=== PATIENT | female | born 1995 | race Caucasian/White ===

== ENCOUNTER 2017-11-28 13:50 | Outpatient (CLI) | payer BC ==
--- NOTE | 2017-11-29 14:33 | PFT ---
PATIENT HISTORY: HEIGHT: 67 IN WEIGHT: 195 SMOKER: NEVER HOW LONG: PACKS PER DAY PRODUCTIVE COUGH: LUNG DISEASE: PHYSICIAN INTERPRETATION FINAL REPORT: VITAL CAPACITY EXPIRATORY FLOWS ARE NORMAL. FOLLOWING BRONCHODILATOR THERAPY, THERE IS FURTHER SLIGHT IMPROVEMENT IN EXPIRATORY FLOWS. REVERSIBLE COMPONENT RV DECREASED, RV/TLC IS LOW. IMPRESSION: ESSENTIALLY NORMAL STUDY. [MAYBE REVERSIBLE COMPONENT TO PATIENTS LUNG FUNCTION] [employer] Pilot: KEVIN Talent Buyer: KEVIN PALMER
== END 2017-11-28 13:51 | disposition home or self-care (01) ==
LOC: CP 13:50
PROVIDERS: ATTEND Family Medicine
DX: R06.2 Wheezing (principal); R05 Cough
CPT/HCPCS: 94060; 94727

== ENCOUNTER 2019-02-21 12:51 | Emergency (ER) | payer OTHER ==
[2019-02-21] MEDS ORDERED: Lidocaine 1% w/Epinephrine 1:100K 20 ML VIAL ONE (13:39)
[2019-02-21] MEDS ORDERED: Bacitracin Zinc 1 Packet ONE (14:41)
== END 2019-02-21 14:50 | disposition home or self-care (01) ==
LOC: SCSER 12:51
DX: S81.842A Puncture wound with foreign body, left lower leg, initial encounter (principal); W45.8XXA Other foreign body or object entering through skin, initial encounter
CPT/HCPCS: 99283; J2001

== ENCOUNTER 2025-10-06 13:13 | Outpatient (CLI) | payer OTHER | END 2025-10-06 13:14 | disposition home or self-care (01) | LOC: BICRAD 13:13 | PROVIDERS: ATTEND Internal Medicine | DX: J40 Bronchitis, not specified as acute or chronic (principal) | CPT/HCPCS: 71046 ==